=== PATIENT | male | born 1980 | race Hispanic/Latino ===

== ENCOUNTER 2025-05-04 12:07 | Emergency (ER) | payer MEDICARE ==
[~2025-05-04] VITALS: Ht 180.3 cm; Wt 136.1 kg
[2025-05-04 12:13] VITALS: BP 142/92; PULSE 67; RESP 20; TEMP 98.6; O2SAT 95
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
--- NOTE | 2025-05-04 12:33 | NUR ---
EYES WASHED PER MD REQUEST, PT TOLERATED WELL
[2025-05-04] MEDS: FLUORESCEIN SODIUM 1 STRIP STRIP OP ONE (12:36)
[2025-05-04] MEDS: TETRACAINE HCL 0.5% 4 ML OPHTH SOLN OP ONE (12:36)
[2025-05-04] MEDS ORDERED: IBUP-2077 PO (12:59)
== END 2025-05-04 13:07 | disposition home or self-care (01) ==
LOC: EDH 12:07 → EEVIPCON 12:07 → EDH 13:07
DX: H57.8A2 Foreign body sensation, left eye (principal)
CPT/HCPCS: 99283